=== PATIENT | male | born 1970 | race Two or more races ===

== ENCOUNTER 2019-10-11 12:04 | Observation (INO) ==
[2019-10-11 12:51] LABS: Basophils % 0.2 % (0.0-0.8); Eosinophils # 0.1 10*3/uL (0.0-0.87); Eosinophils % 0.3 % (0.00-10.9); Hematocrit 54.5 VOL% (42.0-52.0); Hemoglobin 18.8 GM/DL (14.0-18.0); Immature Granulocytes % 0.5 %; Immature Granulocytes Absolute 0.07 #; Lymphocytes # 0.6 10*3/uL (1.4-4.0); Lymphocytes % 4.1 % (21.2-54.2); Mean Corpuscular HGB Conc 34.5 GM/DL (32-36); Mean Platelet Volume 12.9 FL (9.6-12.0); Monocytes % 2.7 % (1.7-12.7); Neutrophils % 92.2 % (38.7-73.9); Platelet Count 166 T/CUMM (130-400); Red Blood Count 5.62 MC/CUMM (3.8-5.5); Red Cell Distribution Width 12.1 % (9.3-17.3); White Blood Count 14.6 T/CUMM (4-12)
[2019-10-11 13:02] LABS: PT Patient Result 10.6 SECS (9.6-12.2); Partial Thromboplastin Time 27.8 SECS (20.8-36.0)
[2019-10-11] MEDS ORDERED: SODIUM CHLORIDE 0.9% 1,000 ML IV STA ×2 (13:04→14:08)
[2019-10-11 13:12] LABS: Alanine Aminotransferase 29 U/L (16-61); Alkaline Phosphatase 166 U/L (45-117); Aspartate Amino Transferase 14 U/L (0-37); Blood Urea Nitrogen 14 MG/DL (7-18); Calcium 8.6 MG/DL (8.5-10.1); Estimated Glom Filtration Rate 90 ML/MIN; Glucose 364 MG/DL (74-106); Osmolality,Calculated 277.7 MOS/KG (273-304); Total Protein 8.2 G/DL (6.4-8.3)
[2019-10-11 13:14] LABS: Band Neutrophils 27 % (0-10); Lymphocytes 9 % (20-55); Platelet Estimate Normal; Segmented Neutrophils 62 % (50-85); Total Cells Counted 100
[2019-10-11 13:15] LABS: Anisocytosis Slight; Macrocytosis Slight
[2019-10-11 13:26] LABS: Apearance,Urine CLEAR (Clear); Bacteria,Urine Occasional /HPF (Few); Bilirubin,Urine Negative (Negative); Blood, Urine Negative (Negative); Glucose,Urine (UA) >=500 mg/dL (Negative); Ketones,Urine 20 mg/dL (Negative); Mucus,Urine Occasional /LPF (Occasional); Nitrite,Urine Negative (Negative); Protein,Urine Negative; RBC,Urine 1 /HPF (0-4); Urine Color Straw (Yellow); Urine Specific Gravity 1.036 (1.001-1.035); Urine Urobilinogen < 2.0 EU/DL (0.2-1.0); WBC,Urine <1 /HPF (0-6)
[2019-10-11 13:45] LABS: Barbiturates Screen,Urine Negative (Negative); Benzodiazepines Screen,Urine Negative (Negative); Cannabinoid Screen,Urine Negative (Negative); Opiate Screen,Urine Negative (Negative); Phencyclidine Screen,Urine Negative (Negative)
[2019-10-11] MEDS ORDERED: DEXTROSE 10% 25 GM/250 ML BAG IV PRN (14:00)
[2019-10-11] MEDS ORDERED: GLUCAGON 1 MG VIAL IM PRN (14:00)
[2019-10-11] MEDS ORDERED: SODIUM CHLORIDE 0.9% 1,000 ML IV SCH (14:00)
[2019-10-11] MEDS ORDERED: LACTULOSE 20 GM/30 ML UDCUP PO PRN (14:00)
[2019-10-11] MEDS ORDERED: ONDANSETRON 4 MG/2 ML VIAL IV PRN (14:00)
[2019-10-11 14:31] LABS: Risk Ratio 4.68; VLDL CHOLESTEROL 44.6 MG/DL
[2019-10-11] MEDS: ENOXAPARIN 40 MG/0.4 ML SYRINGE SUBCUT SCH (16:22)
[2019-10-11] MEDS: INSULIN LISPRO 100 UNIT/ML SUBCUT SCH ×2 (16:54→21:43)
[2019-10-11] MEDS: ACETAMINOPHEN 325 MG TABLET PO PRN (16:59)
[2019-10-11] MEDS: LACTATED RINGERS 1,000 ML IV SCH (17:03)
[2019-10-11] MEDS: ACYCLOVIR 800 MG TABLET PO SCH ×2 (17:44→20:50)
[2019-10-11] MEDS: cefTRIAXone 2,000 MG in SYRINGE 1 EACH IV SCH ×2 (18:59→19:12)
[2019-10-12] MEDS: LACTATED RINGERS 1,000 ML IV SCH ×2 (00:48→09:11)
[2019-10-12 05:41] LABS: Calcium 7.1 MG/DL (8.5-10.1); Osmolality,Calculated 283.5 MOS/KG (273-304)
[2019-10-12 05:55] LABS: Basophils % 0.3 % (0.0-0.8); Eosinophils # 0.1 10*3/uL (0.0-0.87); Eosinophils % 1.6 % (0.00-10.9); Immature Granulocytes % 0.6 %; Immature Granulocytes Absolute 0.05 #; Lymphocytes # 1.4 10*3/uL (1.4-4.0); Lymphocytes % 17.2 % (21.2-54.2); Mean Corpuscular Volume 97.8 FL (87-102); Mean Platelet Volume 13.1 FL (9.6-12.0); Monocytes % 7.2 % (1.7-12.7); Neutrophils % 73.1 % (38.7-73.9); Platelet Count 137 T/CUMM (130-400); Red Cell Distribution Width 12.1 % (9.3-17.3)
[2019-10-12 05:56] LABS: Hemoglobin 15.3 GM/DL (14.0-18.0); White Blood Count 7.9 T/CUMM (4-12)
[2019-10-12] MEDS ORDERED: LISINOPRIL 20 MG TABLET PO SCH (09:00)
[2019-10-12] MEDS: PANTOPRAZOLE 40 MG TABLET PO SCH (09:12)
[2019-10-12] MEDS: ACETAMINOPHEN 325 MG TABLET PO PRN (09:12)
[2019-10-12] MEDS: ACYCLOVIR 800 MG TABLET PO SCH ×2 (09:12→15:38)
[2019-10-12] MEDS: ESCITALOPRAM 10 MG TABLET PO SCH (09:12)
[2019-10-12] MEDS: INSULIN LISPRO 100 UNIT/ML SUBCUT SCH ×4 (09:23→20:25)
[2019-10-12] MEDS: cefTRIAXone 2,000 MG in SYRINGE 1 EACH IV SCH (09:51)
[2019-10-12] MEDS ORDERED: cefTRIAXone 2,000 MG in SYRINGE 1 EACH IV SCH (10:00)
[2019-10-12] MEDS ORDERED: VANCOMYCIN INJ 2,250 MG in SODIUM CHLORIDE 0.9% 500 ML IV ONE (10:30)
[2019-10-12] MEDS ORDERED: SODIUM CHLORIDE 0.9% 500 ML IV ONE (11:50)
[2019-10-12] MEDS: FENOFIBRATE 145 MG TABLET PO SCH (12:13)
[2019-10-12 12:24] LABS: HIV Antigen/Antibody Result Nonreactive (Nonreactive)
[2019-10-12 15:15] LABS: Glucose,CSF 121 MG/DL (40-70)
[2019-10-12 15:25] LABS: Appearance,CSF Clear; Lymphocytes,CSF 100 %; Red Blood Cell,CSF 11 C/CUMM; White Blood Cell,CSF 2 C/CUMM
[2019-10-12] MEDS: ENOXAPARIN 40 MG/0.4 ML SYRINGE SUBCUT SCH (15:38)
[2019-10-12] MEDS ORDERED: ZIPRASIDONE 20 MG/1 ML VIAL IM ONE (17:25)
[2019-10-12] MEDS ORDERED: BUTALBITAL/ACETAMIN/CAFFEINE 50-325-40 MG TABLET PO PRN (17:26)
[2019-10-12] MEDS: CALCIUM (CARBONATE) 500 MG TABLET PO SCH (20:24)
[2019-10-12] MEDS ORDERED: TOPIRAMATE 25 MG TABLET PO SCH (21:00)
[2019-10-12] MEDS ORDERED: VANCOMYCIN INJ 1,500 MG in SODIUM CHLORIDE 0.9% 500 ML IV SCH (21:00)
[2019-10-12] MEDS ORDERED: INSULIN GLARGINE 100 UNIT/ML SUBCUT SCH (21:00)
[2019-10-13] MEDS: LACTATED RINGERS 1,000 ML IV SCH ×3 (01:45→10:16)
[2019-10-13 06:19] LABS: Basophils % 0.3 % (0.0-0.8); Eosinophils # 0.1 10*3/uL (0.0-0.87); Eosinophils % 1.4 % (0.00-10.9); Hematocrit 45.4 VOL% (42.0-52.0); Hemoglobin 15.3 GM/DL (14.0-18.0); Immature Granulocytes % 0.5 %; Immature Granulocytes Absolute 0.04 #; Lymphocytes # 1.9 10*3/uL (1.4-4.0); Mean Corpuscular HGB Conc 33.7 GM/DL (32-36); Mean Corpuscular Volume 98.3 FL (87-102); Mean Platelet Volume 13.2 FL (9.6-12.0); Monocytes % 8.4 % (1.7-12.7); Neutrophils % 65.4 % (38.7-73.9); Platelet Count 143 T/CUMM (130-400); Red Blood Count 4.62 MC/CUMM (3.8-5.5); Red Cell Distribution Width 12.2 % (9.3-17.3); White Blood Count 7.8 T/CUMM (4-12)
[2019-10-13 06:54] LABS: Calcium 7.8 MG/DL (8.5-10.1); Osmolality,Calculated 281.4 MOS/KG (273-304)
[2019-10-13] MEDS: INSULIN LISPRO 100 UNIT/ML SUBCUT SCH ×2 (08:49→11:58)
[2019-10-13] MEDS: PANTOPRAZOLE 40 MG TABLET PO SCH (08:50)
[2019-10-13] MEDS: ENOXAPARIN 40 MG/0.4 ML SYRINGE SUBCUT SCH (08:50)
[2019-10-13] MEDS: ESCITALOPRAM 10 MG TABLET PO SCH (08:50)
[2019-10-13] MEDS: FENOFIBRATE 145 MG TABLET PO SCH (08:50)
[2019-10-13] MEDS: CALCIUM (CARBONATE) 500 MG TABLET PO SCH (08:50)
[2019-10-13] MEDS ORDERED: INSULIN NPH 100 UNIT/ML SUBCUT SCH ×2 (09:00→16:30)
[2019-10-13] MEDS ORDERED: LISINOPRIL 20 MG TABLET PO SCH (09:00)
[2019-10-13 12:09] VITALS: BP 116/73
[2019-10-14 13:35] LABS: VDRL Spinal Fluid Negative (Negative)
[2019-10-14 21:17] LABS: CMV PCR Source CSF; Epstein-Barr Virus Result Negative (Negative); Epstein-Barr Virus Source CSF; Specimen Source CSF
[2019-10-14 23:11] LABS: Enterovirus PCR Source CSF
[2019-10-15 13:01] LABS: M. Tuberculosis PCR Result Negative (Negative); M. Tuberculosis PCR Source CSF
[2019-10-15 21:31] LABS: Adenovirus PCR Negative (Negative); Specimen Source CSF
[2019-10-17 13:35] LABS: West Nile Virus Ab, IgG, CSF Negative (Negative); West Nile Virus Ab, IgM, CSF Negative (Negative)
[2019-10-17 14:45] LABS: Albumin, Serum 3510 mg/dL; CSF Olig Bands Interpretation 0 bands (<4); IgG Index, CSF 0.61 (<=0.85); IgG, CSF 3.4 mg/dL (<=8.1); IgG/Albumin Ratio, CSF 0.17 (<=0.21); Oligoclonal Bands CSF Bands 0 bands; Oligoconal Banding Serum Bands 0 bands; Synthesis Rate, CSF 2.93 mg/24 h (<=12)
== END 2019-10-13 13:46 | disposition home or self-care (01) ==
LOC: N.ED 12:04 → N.EDINP 12:04 → SUATTDRO 14:00 → N.2E 15:47
PROVIDERS: ADMIT Family Medicine; ATTEND Internal Medicine